=== PATIENT | male | born 1945 | race Caucasian/White ===

== ENCOUNTER 2017-04-11 06:43 | Observation (INO) | payer MEDICARE, OTHER ==
[~2017-04-11] VITALS: Ht 180.3 cm; Wt 81.0 kg
[2017-04-11] VITALS (17 sets, daily range): BP systolic 106–154; BP diastolic 48–72
[~2017-04-11 06:43] MED LIST: ASPI-1093 PO; ATOR20TA86 PO
[2017-04-11 07:12] LABS: BASOPHILS % (AUTO) 0.3 % (0.0-2.0); EOSINOPHILS % (AUTO) 4.4 % (1.0-6.0); HEMATOCRIT 39.4 % (41-53); HEMOGLOBIN 13.6 g/dL (13.5-17.5); LYMPHOCYTES % (AUTO) 19.1 % (22.0-44.0); MEAN CORPUSCULAR HEMOGLOBIN 32.2 pg (26.0-34.0); MEAN CORPUSCULAR HGB CONC 34.4 G/dL (31.0-37.0); MEAN CORPUSCULAR VOLUME 94 fL (80-100); MONOCYTES # (AUTO) 0.6 K/uL (0.1-1.0); MONOCYTES % (AUTO) 11.1 % (2.0-9.0); NEUTROPHILS # (AUTO) 3.3 K/uL (1.8-7.7); NEUTROPHILS % (AUTO) 65.1 % (40.0-70.0); PLATELET COUNT (AUTO) 177 K/uL (150-450); RED BLOOD CELL COUNT(AUTO) 4.21 MIL/uL (4.50-5.90); RED CELL DISTRIBUTION WIDTH 12.9 % (11.5-14.5)
[2017-04-11 07:26] LABS: ANION GAP 6 mmol/L (8-16); CALCIUM, TOTAL 8.9 mg/dL (8.8-10.5); CARBON DIOXIDE 29 mmol/L (22-29); CHLORIDE 105 mmol/L (98-107); CREATININE 1.02 mg/dL (0.60-1.30); GLOMERULAR FILTR. RATE CALC > 60 mL/min (>60); POTASSIUM 4.3 mmol/L (3.5-5.1); SODIUM SERUM 140 mmol/L (136-145); UREA NITROGEN, BLOOD 14 mg/dL (7-18)
[2017-04-11 07:28] LABS: PROTHROMBIN TIME 10.2 SEC (9.4-11.6)
[2017-04-11] MEDS ORDERED: SODIUM CHLORIDE 0.9% 1,000 ML IV ONE ×2 (07:30→07:33)
[2017-04-11] MEDS ORDERED: NIAC500T7 PO (07:42)
[2017-04-11] MEDS ORDERED: ATOR40TA28 PO (07:42)
[2017-04-11] MEDS ORDERED: ASCO500 PO (07:42)
[2017-04-11] MEDS ORDERED: LISI-660 PO (07:42)
[2017-04-11] MEDS ORDERED: UBID100C10 PO ×2 (07:42→07:45)
[2017-04-11] MEDS ORDERED: METO-323 PO (07:42)
[2017-04-11] MEDS ORDERED: VITAD5000 PO (07:42)
[2017-04-11] MEDS ORDERED: IOHEXOL 300 MG/ML 150 ML VIAL ONE (08:34)
[2017-04-11] MEDS ORDERED: HEPARIN SODIUM 1000 UNITS/NS 1,000 ML ONE (08:34)
[2017-04-11] MEDS ORDERED: LIDOCAINE HCL/PF 1% 30 ML VIAL ONE (08:34)
[2017-04-11] MEDS ORDERED: HEPARIN SODIUM 1000 UNITS/NS 500 ML ONE (08:55)
[2017-04-11] MEDS ORDERED: VERAPAMIL HCL 2.5 MG/ML 2 ML VIAL ONE (09:34)
[2017-04-11] MEDS ORDERED: HEPARIN SODIUM 1000 UNITS/NS 1,000 ML IARTER ONE (09:34)
[2017-04-11] MEDS ORDERED: NITROGLYCERIN 50 MG/D5% WATER 250 ML ONE (09:35)
[2017-04-11] MEDS ORDERED: LIDOCAINE HCL/PF 1% 30 ML VIAL INJ ONE (09:45)
[2017-04-11] MEDS ORDERED: HEPARIN SODIUM,PORCINE 5,000 UNITS/ML VIAL IVP ONE (09:45)
[2017-04-11] MEDS ORDERED: IOHEXOL 300 MG/ML 150 ML VIAL IARTER ONE (09:45)
[2017-04-11] MEDS ORDERED: IOHEXOL 300 MG/ML 100 ML VIAL ONE (09:47)
[2017-04-11] MEDS ORDERED: ASPIRIN 81 MG CHEWABLE TABLET ONE (10:01)
[2017-04-11] MEDS ORDERED: TICAGRELOR 90 MG TABLET ONE (10:01)
[2017-04-11] MEDS ORDERED: ACETAMINOPHEN 325 MG TABLET PO PRN (10:15)
[2017-04-11] MEDS ORDERED: ASPIRIN 81 MG CHEWABLE TABLET PO ONE (10:15)
[2017-04-11] MEDS ORDERED: TICAGRELOR 90 MG TABLET PO ONE (10:15)
[2017-04-11] MEDS ORDERED: VERAPAMIL HCL 2.5 MG/ML 2 ML VIAL ICOR ONE (11:00)
[2017-04-11] MEDS ORDERED: NITROGLYCERIN/D5W 50 MG/250 ML IV BOTTLE ICOR ONE (11:00)
[2017-04-11] MEDS ORDERED: ATORVASTATIN CALCIUM 40 MG TABLET PO SCH (21:00)
[2017-04-11] MEDS: TICAGRELOR 90 MG TABLET PO SCH (21:58)
[2017-04-12] VITALS (8 sets, daily range): BP systolic 90–135; BP diastolic 52–89
[2017-04-12 05:40] LABS: BASOPHILS % (AUTO) 0.3 % (0.0-2.0); EOSINOPHILS % (AUTO) 3.1 % (1.0-6.0); HEMATOCRIT 39.7 % (41-53); HEMOGLOBIN 13.6 g/dL (13.5-17.5); LYMPHOCYTES % (AUTO) 15.6 % (22.0-44.0); MEAN CORPUSCULAR HEMOGLOBIN 32.3 pg (26.0-34.0); MEAN CORPUSCULAR HGB CONC 34.3 G/dL (31.0-37.0); MEAN CORPUSCULAR VOLUME 94 fL (80-100); MONOCYTES # (AUTO) 0.6 K/uL (0.1-1.0); MONOCYTES % (AUTO) 9.8 % (2.0-9.0); NEUTROPHILS # (AUTO) 4.5 K/uL (1.8-7.7); NEUTROPHILS % (AUTO) 71.2 % (40.0-70.0); PLATELET COUNT (AUTO) 158 K/uL (150-450); RED BLOOD CELL COUNT(AUTO) 4.22 MIL/uL (4.50-5.90); RED CELL DISTRIBUTION WIDTH 13.1 % (11.5-14.5); WHITE BLOOD COUNT (AUTO) 6.3 K/uL (4.5-11.0)
[2017-04-12 06:21] LABS: ALANINE AMINOTRANSFERASE 33 U/L (12-78); ALBUMIN 3.4 g/dL (3.4-5.0); ANION GAP 8 mmol/L (8-16); ASPARTATE AMINOTRANSFERASE 21 U/L (15-37); BILIRUBIN,TOTAL 0.6 mg/dL (0.1-1.0); CALCIUM, TOTAL 8.4 mg/dL (8.8-10.5); CARBON DIOXIDE 24 mmol/L (22-29); CHLORIDE 105 mmol/L (98-107); CREATINE KINASE MB 1.2 ng/mL (0-5); CREATINE KINASE, TOTAL 84 U/L (39-308); CREATININE 0.89 mg/dL (0.60-1.30); GLOMERULAR FILTR. RATE CALC > 60 mL/min (>60); SODIUM SERUM 137 mmol/L (136-145); TOTAL PROTEIN, SERUM 6.5 g/dL (6.4-8.2); UREA NITROGEN, BLOOD 15 mg/dL (7-18)
[2017-04-12] MEDS ORDERED: ASPIRIN 81 MG CHEWABLE TABLET PO SCH (09:00)
[2017-04-12] MEDS: TICAGRELOR 90 MG TABLET PO SCH (09:01)
[2017-04-12] MEDS: METOPROLOL SUCCINATE 25 MG ER TABLET PO SCH ×2 (11:00→11:16)
[2017-04-12] MEDS ORDERED: LISINOPRIL 5 MG TABLET PO SCH (11:00)
[2017-04-12] MEDS ORDERED: TICA90TA PO ×2 (12:37→12:38)
== END 2017-04-12 13:00 | disposition home or self-care (01) ==
LOC: CATHLAB 06:43 → ICU 06:44
PROVIDERS: ADMIT Internal Medicine Cardiovascular Disease; ATTEND Internal Medicine Cardiovascular Disease
DX: I25.10 Atherosclerotic heart disease of native coronary artery without angina pectoris (principal); I21.3 ST elevation (STEMI) myocardial infarction of unspecified site; I10 Essential (primary) hypertension; E78.5 Hyperlipidemia, unspecified
CPT/HCPCS: 36415 ×2; 80048; 80053; 82550; 82553; 84484; 85025 ×2; 85610; 85730; 87081; 92920; 92928; 93005; 93458; C1769; C1874; C1887; G0378 ×2; J1644; J3490 ×3; J7030; Q9967 ×2

== ENCOUNTER → 2017-05-24 | Outpatient (CLI) | payer OTHER ==
[~2017-05-24] MED LIST changes: +ASCO500 PO; -ATOR20TA86 PO; +ATOR40TA28 PO; +LISI-660 PO; +METO-323 PO; +TICA90TA PO; +VITAD5000 PO
== END | disposition home or self-care (01) ==
LOC: LABPV 09:29
PROVIDERS: ATTEND Internal Medicine
DX: Z02.1 Encounter for pre-employment examination (principal)
CPT/HCPCS: 86706; 86735; 86762; 86765; 86787

== ENCOUNTER 2018-11-11 15:53 | Emergency (ER) | payer MEDICARE, OTHER ==
[~2018-11-11] VITALS: Ht 180.3 cm; Wt 84.1 kg
[~2018-11-11 15:53] MED LIST changes: -ASPI-1093 PO; +ASPI-1182 PO; -METO-323 PO; +METO25XL PO
[2018-11-11 17:00] LABS: BASOPHILS % (AUTO) 0.4 % (0.0-2.0); EOSINOPHILS % (AUTO) 4.5 % (1.0-6.0); HEMATOCRIT 38.3 % (41-53); HEMOGLOBIN 13.1 g/dL (13.5-17.5); LYMPHOCYTES # (AUTO) 1.4 K/uL (1.0-4.8); LYMPHOCYTES % (AUTO) 21.5 % (22.0-44.0); MEAN CORPUSCULAR HEMOGLOBIN 31.6 pg (26.0-34.0); MEAN CORPUSCULAR HGB CONC 34.1 G/dL (31.0-37.0); MEAN CORPUSCULAR VOLUME 93 fL (80-100); MONOCYTES # (AUTO) 0.6 K/uL (0.1-1.0); MONOCYTES % (AUTO) 8.8 % (2.0-9.0); NEUTROPHILS # (AUTO) 4.3 K/uL (1.8-7.7); NEUTROPHILS % (AUTO) 64.8 % (40.0-70.0); PLATELET COUNT (AUTO) 205 K/uL (150-450); RED BLOOD CELL COUNT(AUTO) 4.13 MIL/uL (4.50-5.90); RED CELL DISTRIBUTION WIDTH 13.7 % (11.5-14.5)
[2018-11-11 17:11] LABS: ANION GAP 9 mmol/L (8-16); CALCIUM, TOTAL 9.3 mg/dL (8.8-10.5); CARBON DIOXIDE 28 mmol/L (22-29); CHLORIDE 104 mmol/L (98-107); CREATININE 1.03 mg/dL (0.60-1.30); GLUCOSE,RANDOM 91 mg/dL (70-110); POTASSIUM 4.4 mmol/L (3.5-5.1); SODIUM SERUM 141 mmol/L (136-145); UREA NITROGEN, BLOOD 16 mg/dL (7-18)
[2018-11-11 17:12] LABS: GLOMERULAR FILTR. RATE CALC > 60 mL/min (>60)
[2018-11-11 17:20] LABS: ALANINE AMINOTRANSFERASE 35 U/L (12-78); ALBUMIN 3.7 g/dL (3.4-5.0); ALKALINE PHOSPHATASE 51 U/L (46-116); ASPARTATE AMINOTRANSFERASE 35 U/L (15-37); BILIRUBIN,TOTAL 0.3 mg/dL (0.1-1.0); TOTAL PROTEIN, SERUM 7.3 g/dL (6.4-8.2)
[2018-11-11 18:15] VITALS: BP 136/84
== END 2018-11-11 19:19 | disposition home or self-care (01) ==
LOC: EMS 15:55
DX: S46.912A Strain of unspecified muscle, fascia and tendon at shoulder and upper arm level, left arm, initial encounter (principal); I25.2 Old myocardial infarction; X58.XXXA Exposure to other specified factors, initial encounter; Y93.89 Activity, other specified; Y92.89 Other specified places as the place of occurrence of the external cause; Y99.8 Other external cause status
CPT/HCPCS: 93005

== ENCOUNTER → 2018-12-11 | Outpatient (CLI) | payer MEDICARE, OTHER ==
[~2018-12-11] MED LIST changes: -LISI-660 PO; -METO25XL PO
== END | disposition home or self-care (01) ==
LOC: RADPV 10:55
PROVIDERS: ATTEND Legal Medicine
DX: M47.812 Spondylosis without myelopathy or radiculopathy, cervical region (principal); M47.894 Other spondylosis, thoracic region; I70.90 Unspecified atherosclerosis
CPT/HCPCS: 72040; 72070

== ENCOUNTER → 2021-01-11 | Outpatient (CLI) | payer MEDICARE, OTHER ==
[~2021-01-11] MED LIST changes: -ASPI-1182 PO; +ASPI-1444 PO
== END | disposition home or self-care (01) ==
LOC: RADPV 09:44
PROVIDERS: ATTEND Internal Medicine Cardiovascular Disease
DX: I35.8 Other nonrheumatic aortic valve disorders (principal); I51.7 Cardiomegaly; I49.9 Cardiac arrhythmia, unspecified; I25.2 Old myocardial infarction
CPT/HCPCS: 93306

== ENCOUNTER → 2022-01-05 | Outpatient (CLI) | payer MEDICARE, OTHER ==
[~2022-01-05] MED LIST changes: +REGADENOSON 0.4 MG/5 ML PF SYRINGE IVP ONE; +SESTAMIBI TC99M/UD ISOTOPE 1 EA INJ INJ ONE
[2022-01-05 10:11] VITALS: BP 116/72
== END | disposition home or self-care (01) ==
LOC: CARDMN 08:27
PROVIDERS: ATTEND Internal Medicine Cardiovascular Disease
DX: I25.89 Other forms of chronic ischemic heart disease (principal); I34.0 Nonrheumatic mitral (valve) insufficiency; I50.1 Left ventricular failure, unspecified; I23.2 Ventricular septal defect as current complication following acute myocardial infarction
CPT/HCPCS: 78452; 93017; 93306; A9500; J2785

== ENCOUNTER → 2025-07-29 | Outpatient (CLI) | payer MEDICARE, OTHER ==
[~2025-07-29] MED LIST changes: -REGADENOSON 0.4 MG/5 ML PF SYRINGE IVP ONE; -SESTAMIBI TC99M/UD ISOTOPE 1 EA INJ INJ ONE
== END | disposition home or self-care (01) ==
LOC: RADMN 14:53
PROVIDERS: ATTEND Surgery Plastic and Reconstructive Surgery
DX: J93.9 Pneumothorax, unspecified (principal); I70.0 Atherosclerosis of aorta; M47.814 Spondylosis without myelopathy or radiculopathy, thoracic region
CPT/HCPCS: 71046